=== PATIENT | male | born 1945 | race Hispanic/Latino ===

== ENCOUNTER 2024-02-25 20:07 | Emergency (ER) | payer MEDICARE ==
[~2024-02-25] VITALS: Ht 162.6 cm; Wt 59.0 kg
[2024-02-25 20:39] LABS: BASOPHILS # (AUTO) 0.3 (0.0-0.1); BASOPHILS % 1.1 % (0.0-1.0); EOSINOPHILS # (AUTO) 0.2 (0.0-0.4); EOSINOPHILS % 0.6 % (0.0-6.0); HEMATOCRIT 29.1 % (38.2-49.6); HEMOGLOBIN 8.4 g/dL (14.0-18.0); LYMPHOCYTES # (AUTO) 4.8 (1.0-3.2); LYMPHOCYTES % 20.7 % (18.0-39.1); MEAN CORPUSCULAR HGB CONC 28.9 g/dL (31-35); MEAN CORPUSCULAR VOLUME 100.3 fL (81-99); MONOCYTES # (AUTO) 1.9 (0.2-0.8); MONOCYTES % 8.3 % (4.4-11.3); NEUTROPHILS % 59.9 % (38.7-80.0); PLATELET COUNT 83 x10e3/uL (140-360); RED CELL DISTRIBUTION WIDTH 26.6 % (11.7-14.4)
[2024-02-25] MEDS: SODIUM CHLORIDE 0.9% 1000ML 1,000 ML IV STA ×2 (20:54→22:10)
[2024-02-25] MEDS: ACETAMINOPHEN 325 MG TAB PO STA (20:54)
[2024-02-25 21:00] LABS: CORONAVIRUS COVID-19 AG NEGATIVE (NEGATIVE); INFLUENZA A AG NEGATIVE (NEGATIVE); INFLUENZA B AG NEGATIVE (NEGATIVE)
[2024-02-25 21:01] LABS: ALANINE AMINOTRANSFERASE 279 IU/L (0-55); ALBUMIN 2.2 g/dL (3.5-5.0); ALBUMIN/GLOBULIN RATIO 0.9 (0.8-2.0); ALKALINE PHOSPHATASE 1207 IU/L (40-150); BILIRUBIN,TOTAL 7.4 mg/dL (0.2-1.2); BLOOD UREA NITROGEN 44 mg/dL (7-26); BUN/CREATININE RATIO 20 (6-25); CALCIUM 7.5 mg/dL (8.4-10.2); CHLORIDE 108 mmol/L (98-107); CREATINE KINASE 732 IU/L (30-200); CREATININE, SERUM 2.25 mg/dL (0.72-1.25); EST GLOMERULAR FILTRATION RATE 27 ML/MIN (>=60); SODIUM 139 mmol/L (136-145); TOTAL PROTEIN 4.6 g/dL (6.5-8.1)
[2024-02-25 21:05] LABS: ANION GAP 31.2 mmol/L (8-16)
[2024-02-25 21:06] LABS: CARBON DIOXIDE < 5 mmol/L (22-29); GLUCOSE 43 mg/dL (74-118); TROPONIN I 0.041 ng/mL (0-0.300)
[2024-02-25 21:07] LABS: POTASSIUM 5.2 mmol/L (3.5-5.1)
[2024-02-25] MEDS: DEXTROSE 50% SYRINGE 50 ML IV STA (21:23)
[2024-02-25] MEDS: SODIUM BICARBONATE 8.4% SYRING 150 ML in DEXTROSE 5%/0.45% SOD CHL 1,000 ML IV ONE (23:10)
[2024-02-25] MEDS: SODIUM BICARBONATE 8.4% 50 ML VIAL IV STA (23:21)
[2024-02-25 23:27] LABS: BILIRUBIN,URINE MODERATE (NEGATIVE); GLUCOSE, URINE NEGATIVE (NEGATIVE); KETONES,URINE NEGATIVE (NEGATIVE); LEUKOCYTE ESTERASE ,URINE MODERATE (NEGATIVE); NITRITE,URINE NEGATIVE (NEGATIVE); PH,URINE 5.5 (5 - 7); PROTEIN,URINE DIPSTICK 2+ (NEGATIVE); URINE UROBILINOGEN 1 mg/dL (0.2 - 1)
[2024-02-25 23:29] LABS: BACTERIA,URINE MANY /HPF; CLARITY,URINE HAZY (CLEAR); COLOR,URINE AMBER (YELLOW); WBC,URINE (MAN) >50 /HPF (0-5)
[2024-02-25] MEDS: SODIUM BICARBONATE 8.4% INJ 50 ML SYR IV STA (23:34)
[2024-02-26 03:00] VITALS: PULSE 105; RESP 22; TEMP 94
[2024-02-26 03:05] VITALS: PULSE 106; RESP 20; RESP 22; O2SAT 100
[2024-02-26 03:47] VITALS: BP 116/82; PULSE 106; RESP 22; O2SAT 100
[2024-02-26 12:04] LABS: BAND NEUTROPHILS % (MANUAL) 9 %; LYMPHOCYTES % (MANUAL) 25 % (19-48); METAMYELOCYTES % (MANUAL) 4 % (0-0); MONOCYTES % (MANUAL) 2 % (3.4-9.0); MYELOCYTES % (MANUAL) 1 % (0-0); NEUTROPHILS % (MANUAL) 58 % (40-74); NUCLEATED RED BLOOD CELLS 10; REACTIVE LYMPHOCYTES 1
[2024-02-26 12:06] LABS: PLATELET ESTIMATE SLIGHTLY DECREASED; PLATELET MORPHOLOGY COMMENT NORMAL; RBC MORPHOLOGY COMMENT ABNORMAL
[2024-02-26 12:07] LABS: POLYCHROMASIA FEW
[2024-02-26 12:08] LABS: HYPOCHROMASIA MODERATE
[2024-02-26 12:09] LABS: ANISOCYTOSIS SLIG
[2024-02-26 12:10] LABS: POIKILOCYTOSIS SLIGHT
[2024-02-26 13:45] LABS: ABG HCO3 5 mmol/L (22-26); ABG PCO2 22 mmHg (35-45); ABG PH 6.93 (7.35-7.45); ABG PO2 57 mmHg (80-105); ABG TCO2 5
== END 2024-02-26 03:50 | disposition other institution (70) ==
LOC: ER 20:15 → EDBD 20:15 → ER 02-26 03:50
DX: R06.02 Shortness of breath (principal); R65.21 Severe sepsis with septic shock; N39.0 Urinary tract infection, site not specified; N28.9 Disorder of kidney and ureter, unspecified; E87.20 Acidosis, unspecified; R18.8 Other ascites; T68.XXXA Hypothermia, initial encounter; K76.9 Liver disease, unspecified; K57.90 Diverticulosis of intestine, part unspecified, without perforation or abscess without bleeding; E16.2 Hypoglycemia, unspecified; Z85.46 Personal history of malignant neoplasm of prostate; R16.0 Hepatomegaly, not elsewhere classified; Z11.52 Encounter for screening for COVID-19; R94.31 Abnormal electrocardiogram [ECG] [EKG]
CPT/HCPCS: 36415; 36600; 71250; 74176; 80053; 81001; 82550; 82805; 82948; 83605; 83690; 83880; 84484; 85025; 86850; 86900; 87040; 87086; 87428; 93005; 94660; 94799; 99284; J2543 ×2; J7030; J7799